=== PATIENT | male | born 2000 | race Caucasian/White ===

== ENCOUNTER 2020-03-22 09:00 | Day surgery (SDC) | payer OTHER ==
[~2020-03-22] VITALS: Ht 188 cm; Wt 86.2 kg
[2020-03-22] MEDS ORDERED: IBUPROFEN200 MG PO (09:24)
--- NOTE | 2020-03-22 13:32 | NUR ---
03/22/20 [facility] [place] [address]-PT ARRIVES TO PACU ON 6 L VIA MASK AND IS REACTIVE TO VERBAL STIMULUS. PT FOLLOWS COMMANDS TO OPEN EYES BUT DOES NOT ANSWER QUESTIONS ABOUT PAIN OR NAUSEA. NYSTAGMUS NOTED AND BOLT MAN REPORTS KETAMINE GIVEN TOWARDS END OF CASE. VSS.
[2020-03-22] MEDS ORDERED: IBUPROFEN600 MG PO (13:43)
[2020-03-22] MEDS ORDERED: TYLENOL EXTRA500 MG PO (13:43)
[2020-03-22] MEDS ORDERED: OXYCODON-ACETA1 EAC2 PO (13:43)
--- NOTE | 2020-03-22 14:14 | NUR ---
1400: PT ARRIVES TO DS RM 5 FROM PACU AWAKE AND ALERT. PT DENIES NAUSEA AND RATES PAIN 4/10. PT PROVIDED ICED WATER, CRACKERS AND PUDDING. TOLERATES PO WELL. DC CRITERIA EXPLAINED, CALL LIGHT WITHIN REACH.
[2020-03-22] MEDS ORDERED: PERCOCET 7.5-31 EACH PO (14:42)
--- NOTE | 2020-03-22 14:53 | NUR ---
PT RESTING IN BED WATCHING TV, DENIES ANY NAUSEA AND RATES PAIN 3/10. ICED WATER REFILLED A SECOND TIME. WILL NOTIFY RN WITH URGE TO VOID. ENCOURAGED TO USE CALL LIGHT WITH ANY NEEDS.
--- NOTE | 2020-03-22 15:47 | NUR ---
PT USES CALL LIGHT TO NOTIFY RN OF URGE TO VOID. PT SLOWLY MOVES TO SIDE OF BED PRIOR TO STANDING. PT AMBULATES WITH STEADY GAIT AND RN ASSIST TO BATHROOM. PT ABLE TO VOID QS WITH NO STATED PROBLEMS. PT BACK TO BED, STATES FEELING "A LITTLE NAUSEATED" AND PROVIDED ALCOHOL SWAB, DENIES MEDICATION AT THIS TIME. PT ENCOUARAGED TO USE CALL LIGHT WITH ANY NEEDS.
--- NOTE | 2020-03-22 16:00 | NUR ---
PT STATES NAUSEA HAS DISSIPATED WITH ALCOHOL SWAB AND REST, WOULD LIKE TO GET DRESSED AND PREPARE FOR DC. PT MOTHER CONTACTED FOR SAFE RIDE HOME. 1620: DC INSTRUCTIONS GIVEN TO PT, ALL QUESTIONS ADDRESSED. PAIN PRESCRIPTION PROVIDED IN DC PACKET. EXTRA GAUZE PROVIDED FOR HOME CARE. PT DC'S VIA WC TO MOTHER AT MAIN ENTRANCE OF HOSPITAL HOME.
--- NOTE | 2020-03-23 12:01 | PATH ---
[facility] [address] [place], [place] [address] Signed SPECIMEN(S): A PORTION OF LEFT HYDROCELE SAC SPECIMEN(S): B HYDROCELE SAC RIGHT TESTICLE SPECIMEN SOURCE: A. PORTION OF LEFT HYDROCELE SAC B. HYDROCELE SAC RIGHT TESTICLE CLINICAL HISTORY: Hydrocele of testes FINAL PATHOLOGIC DIAGNOSIS: A. Portion of left hydrocele sac, excision: - Fragments of fibromuscular tissue with chronic inflammation, consistent with clinical hydrocele sac. B. Hydrocele sac right testicle, excision: - Fragments of fibromuscular tissue with chronic inflammation, consistent with clinical hydrocele sac. DDF:cml:C2NR MICROSCOPIC EXAMINATION: Histologic sections of all submitted blocks are examined by light microscopy. These findings, together with the gross examination, support the pathologic diagnosis. GROSS DESCRIPTION: Two specimens are received in two containers, labeled "RAEGAN." A. The specimen, labeled "RAEGAN, portion of left hydrocele sac," is received in formalin and consists of three pieces of pink-bryant, smooth, fibromembranous tissue that aggregate measure 7.5 x 3.2 x 0.7 cm. Sectioning through the specimen is unremarkable. Mortgage Loan Officer Originator sections are submitted in cassette (A1). B. The specimen, labeled "RAEGAN," and designated on the requisition "hydrocele sac right testicle," is received in formalin and consists of one piece of irregular shaped, pink-bryant, smooth, fibromembranous tissue that measure 11.2 x 2.5 x 0.3 cm. Sectioning through the specimen is unremarkable. Mortgage Loan Officer Originator sections are submitted in cassette (B1). JS (under the direct supervision of a pathologist) The Gross Description was prepared using a voice recognition system. The report was reviewed for accuracy; however, sound-alike word errors, addition and/or deletions may occur. If there is any PATIENT NAME: LUCINDA STRICKLAND PATHOLOGY DATE OF : [birth year] REPORT #: [id number] PHYSICIAN: GELY SALCEDO PCP: NO PRIMARY CARE PHYSICIAN REPORT IS CONFIDENTIAL AND NOT TO BE RELEASED WITHOUT AUTHORIZATION [facility] [address] [place] [address] Signed question about this report, please contact Client Services. PERFORMING LABORATORY: The technical component was performed by [facility], [address] [place] [address] (Beauty Consultant: Fe Giron MD; CLIA# [id number]). Professional interpretation was performed by [facility], [address] [address] (CLIA# [id number]). Diagnostician: Royal Parrish DO Pathologist Electronically Signed 03/23/2020 Copies: ~ PATIENT NAME: LUCINDA STRICKLAND PATHOLOGY DATE OF : [birth year] REPORT #: [id number] PHYSICIAN: GELY PATHOLOGY PCP: NO PRIMARY CARE PHYSICIAN REPORT IS CONFIDENTIAL AND NOT TO BE RELEASED WITHOUT AUTHORIZATION
--- NOTE | 2020-03-24 22:00 | OR ---
[facility] [address] [place], [place] [address] Signed DATE OF OPERATION: 03/22/2020 SURGEON: Tiffanie Cavanaugh MD PREOPERATIVE DIAGNOSIS: Bilateral giant symptomatic hydroceles. POSTOPERATIVE DIAGNOSIS: Bilateral giant symptomatic hydroceles. PROCEDURE: Bilateral hydrocelectomy (trans-scrotal approach). ANESTHESIA: General LMA, Tiffanie Glover CRNA DRAINS: 5/8-inch Valencia x2. 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 He was noted to have very large bilateral hydroceles. His primary provider has been Nabeel Hameed. He was applying for [employer] program for his schooling, for which the hydroceles were considered need for repair. A delay of repair has been noted due to various social factors, but now he does have increasing symptoms from it and wishes to have hydrocele repair. I discussed with him the risks of bleeding, infection, and recurrence as regard to his hydrocele repair. He understands and wished to proceed. FINDINGS: Left hydrocele was larger than the right, one on the left was a size of a softball, that on the right about a baseball size. Both were excised with similar technique through the transscrotal approach. Clear fluid, which was light yellow was noted from the hydroceles. DESCRIPTION OF PROCEDURE: The patient was brought to the operating room, given a general anesthetic by LMA technique. Heparin was subcutaneously administered. Preoperative antibiotic Ancef was given. Sequential compression device stockings were used. The genitalia were clipped and prepared with a Betadine based solution and draped sterilely. Photograph was taken at the outset of procedure. A transverse incision was made in the left hemiscrotum. Electronically Signed By: TIFFANIE CAVANAUGH MD 03/24/20 2200 PATIENT NAME: LUCINDA STRICKLAND OPERATIVE REPORT DATE OF : [birth year] REPORT #: [id number] PHYSICIAN: TIFFANIE CAVANAUGH MD PCP: NO PRIMARY CARE PHYSICIAN REPORT IS CONFIDENTIAL AND NOT TO BE RELEASED WITHOUT AUTHORIZATION [facility] [address] [place], [place] [address] Signed Dissection carried through the dermis with electrocautery. The dartos muscle was incised with electrocautery, it was rather thick. The underlying fascial layer was carefully incised and the muscular layer from it and the testicle and hydrocele delivered into the wound. A longitudinal incision was made along the axis of the hydrocele oriented superior and inferiorly to allow for egress of a fair amount of clear yellow fluid. This allowed for evaluation of the testicle itself, which was normal. The epididymis was normal as well. The hydrocele sac was from the surrounding layer and redundant hydrocele sac excised. Special care was taken as regard to hemostasis. Those layers were then reapproximated with running 2-0 Vicryl posterior to the testicle maintaining good orientation of the testicle itself. Testicles were placed into the scrotum, and with similar technique the right hydrocele was similarly excised. It was much smaller in size. Photographs were taken. The left and right testicles were secured to the dermis of the scrotum medially and laterally to avoid rotation and torsion. Although, good hemostasis was maintained throughout the dissection. Given his age and size of the space now created, 5/8-inch Valencia were passed into the layer adjacent to the testicle, brought out through the incision. The dartos muscle layer was reapproximated with interrupted 2-0 Vicryl, and the skin similarly reapproximated. The drains were secured to the skin with nylon suture. A fluff gauze dressing was applied as well as a scrotal support (athletic supporter), and he was extubated without problem. After the requisite waiting period in the COVID era, he was transferred to the recovery room in good condition. Blood loss was less than 20 mL. Sponge, needle, and instrument counts reported as correct x3. MD MONTY Crum/DINOL /[id number] cc: ROSELIA Cartagena Copies: NABEEL HAMEED ~ Electronically Signed By: TIFFANIE CAVANAUGH MD 03/24/20 2200 PATIENT NAME: LUCINDA STRICKLAND OPERATIVE REPORT DATE OF : [birth year] REPORT #: [id number] PHYSICIAN: TIFFANIE CAVANAUGH MD PCP: NO PRIMARY CARE PHYSICIAN REPORT IS CONFIDENTIAL AND NOT TO BE RELEASED WITHOUT AUTHORIZATION
== END 2020-03-22 16:25 | disposition home or self-care (01) ==
LOC: OPS 09:00 → DS 09:00 → OPS 16:25
PROVIDERS: Surgery
PROC: 0VB70ZZ Excision of Left Tunica Vaginalis, Open Approach (ICD-10-PCS; 2020-03-22)
PROC: 0VB60ZZ Excision of Right Tunica Vaginalis, Open Approach (ICD-10-PCS; principal; 2020-03-22 08:30)
DX: N43.3 Hydrocele, unspecified (principal); N45.2 Orchitis
CPT/HCPCS: 00920; J0690; J1100; J1644; J1885; J2250; J2405; J2704; J3010; J7121